=== PATIENT | female | born 1995 | race African-American/Black ===

== ENCOUNTER 2018-10-02 11:05 | Observation (INO) | payer MEDICAID ==
[~2018-10-02] VITALS: Ht 152.4 cm; Wt 91.6 kg
[2018-10-02] MEDS ORDERED: ACETAMINOPHEN 500MG TABLET PO NR (11:45)
[2018-10-02 12:20] LABS: PARTIAL THROMBOPLASTIN TIME 26.6 sec (23.4-31.0); PROTHROMBIN TIME 10.4 sec (9.6-11.0)
[2018-10-02] MEDS ORDERED: PREN-118 PO (12:39)
== END 2018-10-02 14:50 | disposition home or self-care (01) ==
LOC: 8 EST LDRP 11:05
PROVIDERS: ADMIT Obstetrics & Gynecology; ATTEND Obstetrics & Gynecology
DX: O36.8130 Decreased fetal movements, third trimester, not applicable or unspecified (principal); O26.893 Other specified pregnancy related conditions, third trimester; R10.30 Lower abdominal pain, unspecified; Z3A.30 30 weeks gestation of pregnancy
CPT/HCPCS: 36415; 76805; 76818; 85610; 85730; 86850; 86900; 86901; 99281; G0378